=== PATIENT | male | born 1985 | race Two or more races ===

== ENCOUNTER 2022-03-08 11:56 | Emergency (ER) | payer SELFPAY ==
[~2022-03-08] VITALS: Ht 177.8 cm; Wt 91.0 kg
[2022-03-08] MEDS ORDERED: PANTOPRAZOLE SODIUM 40 MG/VIAL IV STA (12:24)
[2022-03-08] MEDS ORDERED: ONDANSETRON HCL 4MG/2ML INJ IV STA (12:24)
[2022-03-08] MEDS ORDERED: SODIUM CHLORIDE 0.9% 1,000 ML IV ONE ×2 (12:30→16:00)
[2022-03-08] MEDS ORDERED: VISCOUS LIDOCAINE 2% 15 ML UDC MM ONE (13:00)
[2022-03-08] MEDS ORDERED: MAGNESIUM/ALUMINUM HYDROXIDE/SIMETHICONE 30ML UDC PO ONE (13:00)
[2022-03-08 13:09] LABS: BASOPHILS % 0.2 % (0.0-2.0); HEMATOCRIT. 52.5 % (42.0-52.0); HEMOGLOBIN. 17.5 g/dL (14.0-18.0); MEAN CORPUSCULAR HEMOGLOBIN 28.8 pg (28.0-32.0); MEAN CORPUSCULAR VOLUME 86.3 fL (80.0-94.0); MONOCYTES % 6.8 % (2.0-8.0); PLATELET 317 x1000/uL (130-400); RED BLOOD CELL COUNT 6.08 mill/uL (4.7-6.1); RED CELL DISTRIBUTION WIDTH 13.8 % (11.6-14.6)
[2022-03-08 13:19] LABS: CHLORIDE 103 mEq/L (98-107)
[2022-03-08 13:22] LABS: INR 1.1; PROTHROMBIN TIME 11.9 sec (9.6-11.0)
[2022-03-08 13:27] LABS: ETHANOL BLOOD < 10 mg/dL
[2022-03-08 15:35] LABS: CLARITY URINE CLEAR (CLEAR); COLOR URINE DARK YELLOW (YELLOW); KETONES URINE 1+ (NEGATIVE); LEUKOCYTE ESTERASE URINE 1+ (NEGATIVE); NITRITE URINE POSITIVE (NEGATIVE); OCCULT BLOOD URINE NEGATIVE (NEGATIVE); PROTEIN URINE 2+ (NEGATIVE); SPECIFIC GRAVITY URINE 1.039 (1.005-1.030)
[2022-03-08] MEDS ORDERED: LIDOCAINE HCL/PF 1% 10 MG/ML 5ML VIAL INFIL NR (16:00)
[2022-03-08] MEDS ORDERED: CEFTRIAXONE SODIUM 500 MG/VIAL IM NR (16:00)
[2022-03-08 16:10] LABS: *AMPHETAMINES SCREEN URINE NEGATIVE (NEGATIVE); *BARBITURATES SCREEN URINE NEGATIVE (NEGATIVE); *BENZODIAZEPINES SCREEN URINE NEGATIVE (NEGATIVE); *COCAINE SCREEN URINE NEGATIVE (NEGATIVE); CANNABINOID URINE SCREEN PRESUMTIVE POSITIVE (NEGATIVE); METHADONE URINE SCREEN NEGATIVE (NEGATIVE); OPIATES URINE SCREEN NEGATIVE (NEGATIVE); PHENCYCLIDINE URINE SCREEN NEGATIVE (NEGATIVE)
[2022-03-08] MEDS ORDERED: ONDA4TAB50 MT (17:41)
[2022-03-08] MEDS ORDERED: DOXY-326 MT (17:41)
[2022-03-08] MEDS ORDERED: MAG-55 MT (17:41)
[2022-03-08 18:07] VITALS: BP 128/78
== END 2022-03-08 18:15 | disposition home or self-care (01) ==
LOC: ER 11:56
DX: K29.70 Gastritis, unspecified, without bleeding (principal); K92.0 Hematemesis; N39.0 Urinary tract infection, site not specified; Z00.00 Encounter for general adult medical examination without abnormal findings; F17.290 Nicotine dependence, other tobacco product, uncomplicated; F12.10 Cannabis abuse, uncomplicated; Z79.899 Other long term (current) drug therapy
CPT/HCPCS: 36415; 76705; 80053; 80305; 80320; 81003; 83690; 85025; 85610; 86850; 86900; 86901; 96361; 96372; 96374; 96375; 99285; C9113; J0696; J2405; J3490; J7030; G0480